=== PATIENT | female | born 1945 | race Asian ===

== ENCOUNTER 2018-07-01 21:19 | Emergency (ER) | payer OTHER ==
[~2018-07-01] VITALS: Ht 157.5 cm; Wt 48.1 kg
[2018-07-01 21:41] VITALS: Ht 157.5 cm; Wt 48.1 kg
[2018-07-02 00:47] VITALS: BP 121/79
== END 2018-07-02 00:47 | disposition home or self-care (01) ==
LOC: ED 21:19
DX: S91.331A Puncture wound without foreign body, right foot, initial encounter (principal); S90.31XA Contusion of right foot, initial encounter; I10 Essential (primary) hypertension; E78.00 Pure hypercholesterolemia, unspecified; Z88.6 Allergy status to analgesic agent; W04.XXXA Fall while being carried or supported by other persons, initial encounter; Y93.89 Activity, other specified; Y92.89 Other specified places as the place of occurrence of the external cause; Y99.8 Other external cause status
CPT/HCPCS: Q0092